=== PATIENT | female | born 1965 | race Caucasian/White ===

== ENCOUNTER 2019-03-07 18:33 | Emergency (ER) | payer OTHER ==
[2019-03-07 18:39] VITALS: RESP 18
--- NOTE | 2019-03-07 18:58 | ED ---
ENT HPI - General Source: patient Mode of arrival: ambulatory Limitations: no limitations <Haven Choudhury - Last Filed: 03/07/19 22:03> <Giselle Collazo - Last Filed: 03/10/19 01:11> - General Chief complaint: ENT Stated complaint: rt ear ache Time Seen by Provider: 03/07/19 18:41 - History of Present Illness Initial comments: 54-year-old female presents emergency department for chief complaint of right ear pain. Patient states that since she has had right ear pain. She states she did have a small amount of Dez given that day. Patient states the pain and swelling of the external ear has been increasing. Patient and she can also take the pain and presented to the ER for evaluation. Patient admits to chills she states she is left that she has a fever. Denies any neck stiffness vomiting sensitivity to light headache. Patient denies any other associated symptoms. Patient denies foreign body of the ear. Patient does have history of diabetes. Remaining abuse is negative upon arrival patient appears in no acute distress. Afebrile. (Haven Choudhury) - Related Data Home Medications Medication Instructions Recorded Confirmed Aspirin EC [Ecotrin] 325 mg PO DAILY 08/23/15 08/23/15 Cholecalciferol [Vitamin D3] 1,000 unit PO DAILY 08/23/15 08/23/15 Magnesium Oxide [Mag-Ox] 400 mg PO DAILY 08/23/15 08/23/15 Austin-3 Fatty Acids [Austin-3] 1,000 mg PO DAILY 08/23/15 08/23/15 Ubidecarenone [Co Q-10] 100 mg PO DAILY 08/23/15 08/23/15 Previous Rx's Medication Instructions Recorded Amoxicillin/Potassium Clav 1 tab PO Q12HR #20 tab 08/23/15 [Augmentin 875-125 Tablet] Ciprofloxacin HCl [Cipro] 750 mg PO BID 10 Days #20 tablet 03/07/19 Ciprofloxacin-Dexameth [Ciprodex 4 drops RIGHT EAR BID 7 Days #1 03/07/19 Otic Susp] bottle Amoxicillin/Potassium Clav 1 tab PO Q12HR 10 Days #20 tab 03/08/19 [Augmentin 875-125 Tablet] Allergies Allergy/AdvReac Type Severity Reaction Status Date / Time No Known Allergies Allergy Verified 03/07/19 18:36 Review of Systems ROS Other: All systems not noted in ROS Statement are negative. <Haven Choudhury - Last Filed: 03/07/19 22:03> ROS Other: All systems not noted in ROS Statement are negative. <Giselle Collazo - Last Filed: 03/10/19 01:11> ROS Statement: Those systems with pertinent positive or pertinent negative responses have been documented in the HPI. Past Medical History Past Medical History: Diabetes Mellitus History of Any Multi-Drug Resistant Organisms: None Reported Past Surgical History: Tonsillectomy Past Psychological History: No Psychological Hx Reported Smoking Status: Never smoker Past Alcohol Use History: Rare Past Drug Use History: Marijuana <Haven Choudhury - Last Filed: 03/07/19 22:03> General Exam Limitations: no limitations <Haven Choudhury - Last Filed: 03/07/19 22:03> - General Exam Comments Initial Comments: General: The patient is awake and alert, in no distress Eye: +3 mm pupils are equal, round and reactive to light, extra-ocular movements are intact. No nystagmus. No photophobia There is normal conjunctiva bilaterally. No signs of icterus. Ears, nose, mouth and throat: There are moist mucous membranes and no oral lesions. Right tympanic membrane isn't on visualize as her significant swelling of the external auditory canal which cannot be visualized and there is drainage in the external auditory canal and soft tissue swelling of the external auricle as well as anterior to the external ear. There is no swelling of the posterior ear minimal tenderness to patient and the mastoid. Tenderness to patient the penile with no tender to palpation of pulling of the auricle. Nuchal rigidity. Neck: The neck is supple, there is no tenderness or JVD. Cardiovascular: There is a regular rate and rhythm. No murmur, rub or gallop is appreciated. Respiratory: Lungs are clear to auscultation, respirations are non-labored, breath sounds are equal. No wheezes, stridor, rales, or rhonchi. Musculoskeletal: Normal ROM, no tenderness. Strength 5/5. Sensation intact. Pulses equal bilaterally 2+. Neurological: A&O x 3. CN II-XII intact, There are no obvious motor or sensory deficits. Coordination appears grossly intact. Speech is normal. Skin: Skin is warm and dry and no rashes or lesions are noted. Psychiatric: Cooperative, appropriate mood & affect, normal judgment. (Haven Choudhury) Course Vital Signs 03/07/19 03/07/19 18:36 21:13 Temperature 98.6 F 99.8 F H Pulse Rate 98 88 Respiratory 18 18 Rate Blood Pressure 160/85 168/88 O2 Sat by Pulse 92 L 95 Oximetry Medical Decision Making - Lab Data Result diagrams: 03/07/19 19:30 03/07/19 19:30 <Haven Choudhury - Last Filed: 03/07/19 22:03> - Lab Data Result diagrams: 03/07/19 19:30 03/07/19 19:30 <Giselle Collazo - Last Filed: 03/10/19 01:11> - Medical Decision Making 54 year female presenting to emergency Department for chief complaint of right ear pain. EAC swollen, hx DM, concern for early or possibly developing maligant otitis externa. Dr. Collazo evaluated patient agreeeable with impression. CT (-). No leukocytosis. Lactic acid WNL. CRP elevated. Contacted environmental science technician ENT Dr. Romano dressing physical examination laboratory findings as well as imaging studies who recommended two antibiotics regime choices; 1 levaquin oral or ciprofloxacin and a topical otic drop ciprodex or ofloxacin with preference of ciprodex. Black box warnings of levaquin and risk benefit discussed with patient she preferred ciprofloxacin orally. Ciprodex was ordered topically. Initial otic drops applied after ear wic placed in right EAC. Pt tolerated procedure well. I discussed the symptoms on meningitis and return parameters at length and in detail with patient, she understands there are strict return parameters. Dr. Romano stated patient is to call office Saturday for appointment, pateint understands. Dr. Collazo agreeable with care plan. (Haven Choudhury) I was available for consultation in the emergency department. The history and physical exam were done by the midlevel provider. I was consulted for this patients care. I reviewed the case with the midlevel provider and based on t heir presentation of the patient, I agree with the assessment, medical decision making and plan of care as documented. Ct demonstrates mild mastoiditis. Patient made aware of the need for close follow up. She understood and will call fredy for appointment. Chart was dictated using [employer] dictation software. Attempts were made to correct any dictation errors however some typographical errors may persist. (Giselle Collazo) - Lab Data Lab Results 03/07/19 03/07/19 03/07/19 Range/Units 19:30 19:30 19:30 WBC 9.5 (3.8-10.6) k/uL RBC 4.87 (3.80-5.40) m/uL Hgb 14.2 (11.4-16.0) gm/dL Hct 39.8 (34.0-46.0) % MCV 81.6 (80.0-100.0) fL MCH 29.1 (25.0-35.0) pg MCHC 35.6 (31.0-37.0) g/dL RDW 12.8 (11.5-15.5) % Plt Count 220 (150-450) k/uL Neutrophils % 69 % Lymphocytes % 21 % Monocytes % 6 % Eosinophils % 1 % Basophils % 1 % Neutrophils # 6.6 (1.3-7.7) k/uL Lymphocytes # 2.0 (1.0-4.8) k/uL Monocytes # 0.6 (0-1.0) k/uL Eosinophils # 0.1 (0-0.7) k/uL Basophils # 0.1 (0-0.2) k/uL ESR Cancelled Sodium 138 (137-145) mmol/L Potassium 3.9 (3.5-5.1) mmol/L Chloride 102 (98-107) mmol/L Carbon Dioxide 27 (22-30) mmol/L Anion Gap 9 mmol/L BUN 17 (7-17) mg/dL Creatinine 0.81 (0.52-1.04) mg/dL Est GFR (CKD-EPI)AfAm >90 (>60 ml/min/1.73 sqM) Est GFR (CKD-EPI)NonAf 83 (>60 ml/min/1.73 sqM) Glucose 217 H (74-99) mg/dL Plasma Lactic Acid Franco 0.8 (0.7-2.0) mmol/L Calcium 9.6 (8.4-10.2) mg/dL Total Bilirubin 0.8 (0.2-1.3) mg/dL AST 18 (14-36) U/L ALT 30 (9-52) U/L Alkaline Phosphatase 122 (38-126) U/L C-Reactive Protein 72.9 H (<10.0) mg/L Total Protein 7.5 (6.3-8.2) g/dL Albumin 4.3 (3.5-5.0) g/dL 03/07/19 Range/Units 20:26 WBC (3.8-10.6) k/uL RBC (3.80-5.40) m/uL Hgb (11.4-16.0) gm/dL Hct (34.0-46.0) % MCV (80.0-100.0) fL MCH (25.0-35.0) pg MCHC (31.0-37.0) g/dL RDW (11.5-15.5) % Plt Count (150-450) k/uL Neutrophils % % Lymphocytes % % Monocytes % % Eosinophils % % Basophils % % Neutrophils # (1.3-7.7) k/uL Lymphocytes # (1.0-4.8) k/uL Monocytes # (0-1.0) k/uL Eosinophils # (0-0.7) k/uL Basophils # (0-0.2) k/uL ESR 27 H Sodium (137-145) mmol/L Potassium (3.5-5.1) mmol/L Chloride (98-107) mmol/L Carbon Dioxide (22-30) mmol/L Anion Gap mmol/L BUN (7-17) mg/dL Creatinine (0.52-1.04) mg/dL Est GFR (CKD-EPI)AfAm (>60 ml/min/1.73 sqM) Est GFR (CKD-EPI)NonAf (>60 ml/min/1.73 sqM) Glucose (74-99) mg/dL Plasma Lactic Acid Franco (0.7-2.0) mmol/L Calcium (8.4-10.2) mg/dL Total Bilirubin (0.2-1.3) mg/dL AST (14-36) U/L ALT (9-52) U/L Alkaline Phosphatase (38-126) U/L C-Reactive Protein (<10.0) mg/L Total Protein (6.3-8.2) g/dL Albumin (3.5-5.0) g/dL Disposition Is patient prescribed a controlled substance at d/c from ED?: No Time of Disposition: 21:06 <Haven Choudhury - Last Filed: 03/07/19 22:03> <Elfego Collazoah Alejandro - Last Filed: 03/10/19 01:11> Clinical Impression: Otitis externa, Right ear pain Disposition: HOME SELF-CARE Condition: Good Instructions (If sedation given, give patient instructions): Otitis Externa (ED) Additional Instructions: Please use medication as discussed. Please follow-up with ENT ON SATURDAY, CALL OFFICE FIRST THING in AM. If you develop fever or neck stiffness light sensitivity headache nausea vomiting or worsening pain please IMMEDIATELY return to the ER. Please return to emergency room if the symptoms increase or worsen or for any other concerns. Prescriptions: Amoxicillin/Potassium Clav [Augmentin 875-125 Tablet] 1 tab PO Q12HR 10 Days #20 tab Ciprofloxacin HCl [Cipro] 750 mg PO BID 10 Days #20 tablet Ciprofloxacin-Dexameth [Ciprodex Otic Susp] 4 drops RIGHT EAR BID 7 Days #1 bottle Referrals: Park Shah MD [Primary Care Provider] - 1-2 days Cristiano Hinkle MD [STAFF PHYSICIAN] - 1-2 days
[2019-03-07] MEDS ORDERED: MORPHINE SULFATE 4 MG/ML SYRINGE IVP STA (19:20)
[2019-03-07] MEDS ORDERED: PIPERACILLIN-TAZOBACTAM 3.375 GM in SODIUM CHLORIDE 0.9% 100 ML IVPB STA (19:22)
[2019-03-07 19:49] LABS: Basophils # (A) 0.1 k/uL (0-0.2); Basophils % (A) 1 %; Eosinophils # (A) 0.1 k/uL (0-0.7); Eosinophils % (A) 1 %; HCT 39.8 % (34.0-46.0); HGB 14.2 gm/dL (11.4-16.0); Lymphocytes % (A) 21 %; MCH 29.1 pg (25.0-35.0); MCHC 35.6 g/dL (31.0-37.0); MCV 81.6 fL (80.0-100.0); Mean Platelet Volume 6.3; Monocytes # (A) 0.6 k/uL (0-1.0); Monocytes % (A) 6 %; Neutrophils # (A) 6.6 k/uL (1.3-7.7); Neutrophils % (A) 69 %; Platelet Count 220 k/uL (150-450); RBC 4.87 m/uL (3.80-5.40); RDW 12.8 % (11.5-15.5); WBC 9.5 k/uL (3.8-10.6)
[2019-03-07 19:59] LABS: ALT 30 U/L (9-52); AST 18 U/L (14-36); African American GFR (CKD) >90 (>60 ml/min/1.73 sqM); Albumin 4.3 g/dL (3.5-5.0); Alkaline Phosphatase 122 U/L (38-126); Anion Gap 9 mmol/L; Blood Urea Nitrogen 17 mg/dL (7-17); C Reactive Protein 72.9 mg/L (<10.0); Calcium 9.6 mg/dL (8.4-10.2); Carbon Dioxide 27 mmol/L (22-30); Chloride 102 mmol/L (98-107); Glucose 217 mg/dL (74-99); Potassium 3.9 mmol/L (3.5-5.1); Sodium 138 mmol/L (137-145); Total Bilirubin 0.8 mg/dL (0.2-1.3); Total Protein 7.5 g/dL (6.3-8.2)
--- NOTE | 2019-03-07 20:25 | CT ---
EXAMINATION TYPE: CT iac w con DATE OF EXAM: 03/07/2019 COMPARISON: None HISTORY: Right ear swelling. Hearing loss CT DLP: 309.1 mGycm Automated exposure control for dose reduction was used. CONTRAST: CT scan of the IACs is performed with IV Contrast, patient injected with 100 mL of Isovue 300. FINDINGS: There is extensive thickening of the right external auditory canal. Lumen is narrowed. Ther e is opacification of the middle ear and mucosal thickening extending into the epitympanic recess. Th ere is fluid around the ossicles. Left side shows normal aeration of the epitympanic recess. The cochlea and semicircular canals are intact. There is no evidence of a posterior fossa mass. There is no pathologic enhancement. The internal auditory canals are symmetric. There is mild mucosal thickening in the right side mastoid air cells. I see no focal bone destruction . IMPRESSION: There is evidence of right-sided otitis externa and otitis interna. There is mild right side mastoid itis. Left side appears normal. IMPRESSION: No significant abnormality seen to account for patient's symptoms.
[2019-03-07] MEDS ORDERED: OFLOXACIN 0.3% OPHTH DROPS 5 ML BOTTLE RIGHT EAR SCH (21:00)
[2019-03-07 21:14] VITALS: BP 168/88; PULSE 88; TEMP 99.8
[2019-03-07] MEDS ORDERED: ACET/COD 300 MG/30 MG STARTER PACK 6 TAB BTL PO STA (21:19)
== END 2019-03-07 21:28 | disposition home or self-care (01) ==
LOC: EC 18:33
DX: H60.91 Unspecified otitis externa, right ear (principal); E11.9 Type 2 diabetes mellitus without complications; Z79.82 Long term (current) use of aspirin
CPT/HCPCS: 36415; 80053; 85652; 83605; 85025; 86140; 87040; 70481; 99283; 96365; 96375; J2543; J2270; Q9967